=== PATIENT | male | born 1950 | race Caucasian/White ===

== ENCOUNTER 2017-09-10 09:18 | Day surgery (SDC) | payer MEDICARE ==
[2017-09-10] MEDS ORDERED: LACTATED RINGERS 1,000 ML IV ONE (09:31)
[2017-09-10] MEDS ORDERED: fentaNYL 100 MCG/2 ML VIAL IVP ONE (09:59)
[2017-09-10] MEDS ORDERED: MIDAZOLAM 2 MG/2 ML VIAL IVP ONE (09:59)
[2017-09-10 11:26] VITALS: BP 124/73
== END 2017-09-10 09:19 | disposition home or self-care (01) ==
LOC: SDS 09:18
PROVIDERS: ATTEND Surgery
PROC: 0DBL8ZZ Excision of Transverse Colon, Via Natural or Artificial Opening Endoscopic (ICD-10-PCS; principal; 2017-09-10 10:15)
DX: Z12.11 Encounter for screening for malignant neoplasm of colon (principal); D12.3 Benign neoplasm of transverse colon; K64.4 Residual hemorrhoidal skin tags; K64.8 Other hemorrhoids; K57.30 Diverticulosis of large intestine without perforation or abscess without bleeding
CPT/HCPCS: 45380; J7120

== ENCOUNTER 2021-08-29 14:11 | Outpatient (CLI) | payer MEDICARE ==
--- NOTE | 2021-08-29 20:51 | XRAY Report ---
PROCEDURE: Shoulder 3 View BILAT INDICATIONS: RIGHT SHOULDER PAIN TECHNIQUE: 3 views of each shoulder were acquired. COMPARISON: 11/15/2014 FINDINGS: Bones: No fractures or dislocations. No suspicious bony lesions. Visualized ribs appear intact. There are degenerative changes seen, including mild to moderate subacromial spurring, which is more p rominent on the right than on the left. There is at least moderate glenohumeral joint space narrowing seen on each side. Soft tissues: No suspicious soft tissue calcifications. The visualized lung demonstrates a normal a ppearance. On one image, there is an apparent artifact seen overlying the left inferior scapula, which is not se en on the additional views. 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 The degenerative changes have progressed compared to 2014. If it would be helpful for clinical management decision making, please consider a dedicated, schedule d shoulder MRI for further evaluation (assuming that there is no contraindication). Reviewed by: Leroy Cuello MD on 08/29/2021 7:50 PM [facility] Approved by: Leroy Cuello MD on 08/29/2021 7:50 PM [facility] Station ID: [id number]
== END 2021-08-29 14:12 | disposition home or self-care (01) ==
LOC: DI 14:11
PROVIDERS: ATTEND Family Medicine
DX: M19.012 Primary osteoarthritis, left shoulder (principal); M19.011 Primary osteoarthritis, right shoulder